=== PATIENT | male | born 1960 | race Caucasian/White ===

== ENCOUNTER 2021-07-29 13:10 | Inpatient (IN) ==
[2021-07-29] MEDS ORDERED: methylPREDNISolone 125 MG/2 ML VIAL IVP ONE (13:22)
[2021-07-29] MEDS ORDERED: Ipratropium/Albuterol Neb 3 ML IH ONE (13:22)
[2021-07-29] MEDS ORDERED: 0.9 % Sodium Chloride 1,000 ML IVC ONE (13:22)
[2021-07-29 13:56] LABS: Basophils # 0.1 K/mcL (0.0-0.2); Basophils % 0.7 %; Eosinophils % 0.2 %; Hematocrit 40.6 % (37.5-50.1); Hemoglobin 12.5 g/dL (12.9-16.9); Immature Granulocytes % 4.9 % (0-4); Lymphocytes # 0.9 K/mcL (0.6-4.6); Lymphocytes % 8.2 %; Mean Corpuscular HGB Conc 30.8 g/dL (31.6-35.5); Mean Corpuscular Hemoglobin 26.1 pg (28.0-33.3); Mean Corpuscular Volume 84.8 fL (83.0-100.0); Mean Platelet Volume 10.3 fL (9.4-12.4); Monocytes % 8.8 %; Neutrophils # 8.9 K/mcL (1.6-8.9); Nucleated Red Blood Cells 0.2 /100 WBC (0); Platelet Count 272 K/mcL (140-400); Red Blood Count 4.79 M/mcL (4.19-5.50); Red Cell Distribution Width 16.3 % (11.5-14.5); Segmented Neutrophils % 77.2 %; White Blood Count 11.5 K/mcL (4.3-11.1)
[2021-07-29 14:14] LABS: BUN/Creatinine Ratio 22 (6-26); Blood Urea Nitrogen 19 mg/dL (6-20); Calcium 7.6 mg/dL (8.6-10.3); Carbon Dioxide 25 mEq/L (23-29); Chloride 102 mEq/L (98-107); Glucose 139 mg/dL (70-105); Osmolality,Calculated 289 (280-300); Potassium 4.2 mEq/L (3.5-5.1); Sodium 137 mEq/L (136-145); Troponin I 0.42 ng/mL (< 0.04); eGFR For African Americans > 60 (> 60); eGFR For Non-African Americans > 60 (> 60)
[2021-07-29] MEDS ORDERED: *HR* Heparin 5,000 UNIT/ML VIAL IVP ONE (14:16)
[2021-07-29] MEDS ORDERED: *HR* Heparin 5,000 UNIT/ML VIAL IVP PRN ×2 (14:16)
[2021-07-29 14:29] LABS: Influenza A PCR Negative (Negative); Influenza B PCR Negative (Negative); Resp. Syncytial Virus PCR Negative (Negative)
[2021-07-29] MEDS ORDERED: Heparin 25,000UNIT/250ML 1/2NS 25,000 UNIT/250 ML IV.SOLN IVC SCH (14:30)
[2021-07-29 14:32] LABS: SARS-CoV-2 by PCR (In House) Positive (Negative)
[2021-07-29] MEDS ORDERED: Azithromycin 500 MG in 0.9 % Sodium Chloride 250 ML IVPB ONE (14:32)
[2021-07-29] MEDS ORDERED: Naloxone 0.4 MG/ML INJ IVP PRN (16:50)
[2021-07-29] MEDS ORDERED: Ondansetron 4 MG/2 ML VIAL IVP PRN (16:50)
[2021-07-29] MEDS: Tiotropium 10 INH DOSE IH SCH (17:11)
[2021-07-29] MEDS ORDERED: Isovue-370 500 ML BOTTLE IVP ONE (17:51)
[2021-07-29] MEDS ORDERED: Perflutren Lipid Microsphere 1.3 ML in 0.9 % Sodium Chloride 8.7 ML IVP PRN (17:52)
[2021-07-29] MEDS: cefTRIAXone 1,000 MG in Water for inj. (sterile) 10 ML IVP SCH (20:00)
[2021-07-29] MEDS: *HR* Enoxaparin 150 MG/ML SYRINGE SQ SCH (20:00)
[2021-07-29 20:40] LABS: Alanine Aminotransferase 28 Units/L (7-52); Albumin 3.1 g/dL (3.5-5.7); Alkaline Phosphatase 89 Units/L (34-104); Aspartate Amino Transferase 41 Units/L (13-39); Bilirubin,Direct 0.2 mg/dL (0.0-0.2); Bilirubin,Indirect 0.3 mg/dL (0.0-1.0); Bilirubin,Total 0.5 mg/dL (0.3-1.0); C-Reactive Protein > 300 mg/L (Less than 10); Globulin 3.2 g/dL (2.4-3.5); Total Protein 6.3 g/dL (6.4-8.9)
[2021-07-30] MEDS: Melatonin 3 MG TABLET PO PRN ×2 (00:05→21:37)
[2021-07-30] MEDS: *HR* Enoxaparin 150 MG/ML SYRINGE SQ SCH ×2 (05:06→17:59)
[2021-07-30 06:10] LABS: Hematocrit 40.2 % (37.5-50.1); Hemoglobin 12.1 g/dL (12.9-16.9); Mean Corpuscular HGB Conc 30.1 g/dL (31.6-35.5); Mean Corpuscular Volume 86.3 fL (83.0-100.0); Mean Platelet Volume 10.4 fL (9.4-12.4); Nucleated Red Blood Cells 0.2 /100 WBC (0); Platelet Count 292 K/mcL (140-400); Red Blood Count 4.66 M/mcL (4.19-5.50); Red Cell Distribution Width 16.5 % (11.5-14.5); White Blood Count 9.7 K/mcL (4.3-11.1)
[2021-07-30 06:26] LABS: BUN/Creatinine Ratio 28 (6-26); Blood Urea Nitrogen 23 mg/dL (6-20); Calcium 7.5 mg/dL (8.6-10.3); Carbon Dioxide 23 mEq/L (23-29); Chloride 105 mEq/L (98-107); Glucose 202 mg/dL (70-105); Osmolality,Calculated 295 (280-300); Phosphorous 2.3 mg/dL (2.7-4.5); Sodium 138 mEq/L (136-145); eGFR For African Americans > 60 (> 60); eGFR For Non-African Americans > 60 (> 60)
[2021-07-30 06:29] LABS: Anisocytosis 1+ (Not Present); Lymphocytes # 0.4 K/mcL (0.6-4.6); Monocytes # 0.6 K/mcL (0.0-1.3); Neutrophils # 8.7 K/mcL (1.6-8.9); Platelet Estimate Normal (Normal)
[2021-07-30 06:30] LABS: Troponin I 0.39 ng/mL (< 0.04)
[2021-07-30] MEDS ORDERED: Ketorolac 30 MG/ML VIAL IVP ONE (09:01)
[2021-07-30] MEDS: cefTRIAXone 1,000 MG in Water for inj. (sterile) 10 ML IVP SCH (09:22)
[2021-07-30] MEDS: GuaiFENesin Liq 200 MG/10 ML UDC PO PRN ×2 (09:22→18:13)
[2021-07-30] MEDS: Azithromycin 500 MG in 0.9 % Sodium Chloride 250 ML IVPB SCH (09:23)
[2021-07-30] MEDS: Tiotropium 10 INH DOSE IH SCH (11:38)
[2021-07-30] MEDS: Nicotine 21 MG PATCH.TD24 TD SCH (13:14)
[2021-07-30] MEDS ORDERED: *HR* LORazepam 2 MG/ML VIAL IVP PRN (18:02)
[2021-07-30] MEDS: Dexmedetomidine HCl 400 MCG/100 ML MLS IVC SCH (22:54)
[2021-07-30] MEDS ORDERED: Fluticasone Propionate Nasal 50 MCG/SPRAY BOTTLE NS PRN (23:26)
[2021-07-31] MEDS: Dexmedetomidine HCl 400 MCG/100 ML MLS IVC SCH ×6 (02:05→22:20)
[2021-07-31] MEDS ORDERED: OLANZapine 10 MG VIAL IM ONE (02:40)
[2021-07-31 02:58] LABS: ABG Base Excess 0 mEq/L (-2 to 3); ABG HCO3 25 mEq/L (21-27); ABG Oxygen Saturation 93 % (95-98); ABG PCO2 43 mmHg (35-45); ABG PH 7.38 pH Units (7.32-7.45); ABG PO2 68 mmHg (85-104); ABG TCO2 27 mEq/L (20-26)
[2021-07-31] MEDS ORDERED: Water for inj. (sterile) 10 ML ONE (03:03)
[2021-07-31] MEDS ORDERED: Haloperidol Lactate 5 MG/ML VIAL IVP ONE (03:10)
[2021-07-31] MEDS: *HR* Enoxaparin 150 MG/ML SYRINGE SQ SCH (06:10)
[2021-07-31 07:16] LABS: Basophils # 0.1 K/mcL (0.0-0.2); Basophils % 0.7 %; Hematocrit 39.6 % (37.5-50.1); Hemoglobin 12.2 g/dL (12.9-16.9); Immature Granulocytes % 4.6 % (0-4); Lymphocytes # 0.9 K/mcL (0.6-4.6); Lymphocytes % 8.2 %; Mean Corpuscular HGB Conc 30.8 g/dL (31.6-35.5); Mean Corpuscular Hemoglobin 26.9 pg (28.0-33.3); Mean Corpuscular Volume 87.2 fL (83.0-100.0); Mean Platelet Volume 10.6 fL (9.4-12.4); Monocytes # 1.2 K/mcL (0.0-1.3); Monocytes % 10.6 %; Neutrophils # 8.6 K/mcL (1.6-8.9); Nucleated Red Blood Cells 0.2 /100 WBC (0); Platelet Count 388 K/mcL (140-400); Red Blood Count 4.54 M/mcL (4.19-5.50); Red Cell Distribution Width 16.8 % (11.5-14.5); Segmented Neutrophils % 75.9 %; White Blood Count 11.3 K/mcL (4.3-11.1)
[2021-07-31 07:35] LABS: BUN/Creatinine Ratio 37 (6-26); Blood Urea Nitrogen 28 mg/dL (6-20); Calcium 7.8 mg/dL (8.6-10.3); Carbon Dioxide 24 mEq/L (23-29); Chloride 108 mEq/L (98-107); Glucose 217 mg/dL (70-105); Magnesium 2.2 mg/dL (1.6-2.6); Osmolality,Calculated 306 (280-300); Potassium 4.3 mEq/L (3.5-5.1); Sodium 142 mEq/L (136-145); eGFR For African Americans > 60 (> 60); eGFR For Non-African Americans > 60 (> 60)
[2021-07-31] MEDS: Tiotropium 10 INH DOSE IH SCH (07:43)
[2021-07-31] MEDS: Azithromycin 500 MG in 0.9 % Sodium Chloride 250 ML IVPB SCH (07:56)
[2021-07-31] MEDS: cefTRIAXone 1,000 MG in Water for inj. (sterile) 10 ML IVP SCH (07:56)
[2021-07-31] MEDS: Nicotine 21 MG PATCH.TD24 TD SCH (07:57)
[2021-07-31] MEDS ORDERED: *HR* LORazepam 2 MG/ML VIAL IVP ONE (10:47)
[2021-07-31] MEDS ORDERED: *HR* LORazepam 2 MG/ML VIAL IVP PRN (10:48)
[2021-07-31] MEDS: Aspirin Enteric Coated 81 MG Tablet PO SCH (11:05)
[2021-07-31] MEDS: Nystatin POWDER 30 GM BOTTLE TP SCH ×3 (11:10→20:58)
[2021-07-31] MEDS: *HR* Enoxaparin 40 MG/0.4 ML SYRINGE SQ SCH (16:53)
[2021-07-31] MEDS: *HR* LORazepam 2 MG/ML VIAL IVP PRN (18:31)
[2021-07-31] MEDS ORDERED: Morphine Sulfate 2 MG/ML SYRINGE IVP ONE (20:44)
[2021-07-31 21:04] LABS: ABG Base Excess 0 mEq/L (-2 to 3); ABG HCO3 26 mEq/L (21-27); ABG Oxygen Saturation 90 % (95-98); ABG PCO2 50 mmHg (35-45); ABG PH 7.33 pH Units (7.32-7.45); ABG PO2 65 mmHg (85-104); ABG TCO2 28 mEq/L (20-26); Blood Gas Modality AVAPS
[2021-08-01] MEDS: Dexmedetomidine HCl 400 MCG/100 ML MLS IVC SCH ×7 (01:57→22:10)
[2021-08-01 03:51] LABS: Basophils # 0.1 K/mcL (0.0-0.2); Basophils % 0.8 %; Hematocrit 41.3 % (37.5-50.1); Hemoglobin 12.2 g/dL (12.9-16.9); Immature Granulocytes % 4.6 % (0-4); Lymphocytes % 6.1 %; Mean Corpuscular HGB Conc 29.5 g/dL (31.6-35.5); Mean Corpuscular Volume 88.1 fL (83.0-100.0); Monocytes # 1.5 K/mcL (0.0-1.3); Neutrophils # 12.7 K/mcL (1.6-8.9); Platelet Count 436 K/mcL (140-400); Red Blood Count 4.69 M/mcL (4.19-5.50); Red Cell Distribution Width 16.8 % (11.5-14.5); Segmented Neutrophils % 79.5 %
[2021-08-01 04:05] LABS: BUN/Creatinine Ratio 45 (6-26); Blood Urea Nitrogen 28 mg/dL (6-20); Calcium 7.9 mg/dL (8.6-10.3); Carbon Dioxide 25 mEq/L (23-29); Chloride 106 mEq/L (98-107); Glucose 209 mg/dL (70-105); Magnesium 2.2 mg/dL (1.6-2.6); Osmolality,Calculated 302 (280-300); Phosphorous 2.5 mg/dL (2.7-4.5); Potassium 4.5 mEq/L (3.5-5.1); Sodium 140 mEq/L (136-145); eGFR For African Americans > 60 (> 60); eGFR For Non-African Americans > 60 (> 60)
[2021-08-01] MEDS: *HR* Enoxaparin 40 MG/0.4 ML SYRINGE SQ SCH ×2 (05:08→18:55)
[2021-08-01] MEDS ORDERED: Morphine Sulfate 2 MG/ML SYRINGE IVP PRN (07:51)
[2021-08-01] MEDS: Tiotropium 10 INH DOSE IH SCH (08:18)
[2021-08-01 08:45] LABS: ABG Base Excess 2 mEq/L (-2 to 3); ABG HCO3 26 mEq/L (21-27); ABG Oxygen Saturation 92 % (95-98); ABG PCO2 39 mmHg (35-45); ABG PH 7.43 pH Units (7.32-7.45); ABG PO2 63 mmHg (85-104); ABG TCO2 27 mEq/L (20-26); Blood Gas Pressure Support 40 cm H2O
[2021-08-01] MEDS: Aspirin Enteric Coated 81 MG Tablet PO SCH (10:21)
[2021-08-01] MEDS: Nicotine 21 MG PATCH.TD24 TD SCH (10:48)
[2021-08-01] MEDS: cefTRIAXone 1,000 MG in Water for inj. (sterile) 10 ML IVP SCH (10:48)
[2021-08-01] MEDS: Azithromycin 500 MG in 0.9 % Sodium Chloride 250 ML IVPB SCH (10:50)
[2021-08-01] MEDS: Nystatin POWDER 30 GM BOTTLE TP SCH ×3 (10:51→20:20)
[2021-08-01] MEDS: *HR* LORazepam 2 MG/ML VIAL IVP PRN (14:07)
[2021-08-01 17:19] LABS: C-Reactive Protein 60 mg/L (Less than 10)
[2021-08-02] MEDS: *HR* LORazepam 2 MG/ML VIAL IVP PRN (00:56)
[2021-08-02] MEDS: Dexmedetomidine HCl 400 MCG/100 ML MLS IVC SCH ×4 (01:07→12:26)
[2021-08-02 05:08] LABS: Hematocrit 40.1 % (37.5-50.1); Hemoglobin 12.4 g/dL (12.9-16.9); Mean Corpuscular HGB Conc 30.9 g/dL (31.6-35.5); Mean Corpuscular Hemoglobin 26.8 pg (28.0-33.3); Mean Corpuscular Volume 86.6 fL (83.0-100.0); Mean Platelet Volume 10.7 fL (9.4-12.4); Nucleated Red Blood Cells 0.1 /100 WBC (0); Platelet Count 430 K/mcL (140-400); Red Blood Count 4.63 M/mcL (4.19-5.50); White Blood Count 17.5 K/mcL (4.3-11.1)
[2021-08-02] MEDS: *HR* Enoxaparin 40 MG/0.4 ML SYRINGE SQ SCH ×2 (05:08→17:39)
[2021-08-02 05:28] LABS: BUN/Creatinine Ratio 38 (6-26); Blood Urea Nitrogen 23 mg/dL (6-20); Calcium 7.7 mg/dL (8.6-10.3); Carbon Dioxide 26 mEq/L (23-29); Chloride 105 mEq/L (98-107); Glucose 197 mg/dL (70-105); Magnesium 2.1 mg/dL (1.6-2.6); Osmolality,Calculated 295 (280-300); Phosphorous 2.6 mg/dL (2.7-4.5); Potassium 4.2 mEq/L (3.5-5.1); Sodium 138 mEq/L (136-145); eGFR For African Americans > 60 (> 60); eGFR For Non-African Americans > 60 (> 60)
[2021-08-02 06:00] LABS: Anisocytosis 1+ (Not Present); Lymphocytes # 0.4 K/mcL (0.6-4.6); Monocytes # 1.4 K/mcL (0.0-1.3); Neutrophils # 15.1 K/mcL (1.6-8.9); Platelet Estimate Normal (Normal)
[2021-08-02] MEDS: cefTRIAXone 1,000 MG in Water for inj. (sterile) 10 ML IVP SCH (07:53)
[2021-08-02] MEDS: Azithromycin 500 MG in 0.9 % Sodium Chloride 250 ML IVPB SCH (07:55)
[2021-08-02] MEDS: Aspirin Enteric Coated 81 MG Tablet PO SCH (08:12)
[2021-08-02] MEDS: Tiotropium 10 INH DOSE IH SCH (08:45)
[2021-08-02 08:54] LABS: ABG Base Excess 4 mEq/L (-2 to 3); ABG HCO3 27 mEq/L (21-27); ABG Oxygen Saturation 89 % (95-98); ABG PCO2 37 mmHg (35-45); ABG PH 7.47 pH Units (7.32-7.45); ABG PO2 53 mmHg (85-104); ABG TCO2 29 mEq/L (20-26); Blood Gas Modality avaps; Blood Gas Pressure Support 16 cm H2O; Blood Gas VT 500 cc
[2021-08-02] MEDS ORDERED: Acetaminophen IV 1,000 MG/100 ML BAG IVPB PRN (09:39)
[2021-08-02] MEDS ORDERED: Acetaminophen 650 MG RECTAL SUPP RC PRN (09:39)
[2021-08-02] MEDS: Nicotine 21 MG PATCH.TD24 TD SCH (10:20)
[2021-08-02] MEDS: Nystatin POWDER 30 GM BOTTLE TP SCH ×3 (12:26→20:02)
[2021-08-02] MEDS ORDERED: Insulin LISPRO 300 UNITS/3 ML VIAL SUBQ SCH (13:30)
[2021-08-02] MEDS ORDERED: *HR* Propofol 200 MG/20 ML VIAL IVP ONE (14:04)
[2021-08-02] MEDS ORDERED: *HR* Midazolam HCl 5 MG/5 ML VIAL IVP ONE (14:04)
[2021-08-02] MEDS ORDERED: *HR* Rocuronium Bromide 50 MG/5 ML VIAL IVP ONE (14:04)
[2021-08-02] MEDS ORDERED: Lidocaine -MPF 2% 5 ML VIAL SQ ONE (14:04)
[2021-08-02] MEDS: FentaNYL (PF) 1,000 MCG/100 ML IV.SOLN IVC SCH ×2 (15:00→19:15)
[2021-08-02] MEDS ORDERED: Artificial Tears SOLN 15 ML BOTTLE BOTH EYES PRN (15:10)
[2021-08-02] MEDS: Norepinephrine 4 MG/254 ML IV.SOLN IVC SCH ×2 (17:34→19:10)
[2021-08-02] MEDS: Artificial Tears SOLN 15 ML BOTTLE BOTH EYES SCH ×2 (17:38→19:39)
[2021-08-02] MEDS: Insulin LISPRO 300 UNITS/3 ML VIAL SUBQ SCH (17:39)
[2021-08-02] MEDS ORDERED: Isovue-370 500 ML BOTTLE IVP ONE ×2 (19:12→20:15)
[2021-08-02] MEDS: Chlorhexidine Rinse 15 ML MOUTHWASH MM SCH (19:37)
[2021-08-03] MEDS ORDERED: MetroNIDAZOLE 500 MG/100 ML 500 MG/100 ML BAG IVPB SCH
[2021-08-03] MEDS: MetroNIDAZOLE 500 MG/100 ML 500 MG/100 ML BAG IVPB SCH ×2 (00:07→07:52)
[2021-08-03] MEDS: Artificial Tears SOLN 15 ML BOTTLE BOTH EYES SCH ×6 (00:07→20:11)
[2021-08-03] MEDS: FentaNYL (PF) 1,000 MCG/100 ML IV.SOLN IVC SCH ×5 (00:25→20:29)
[2021-08-03] MEDS: Insulin LISPRO 300 UNITS/3 ML VIAL SUBQ SCH ×5 (00:28→20:19)
[2021-08-03 03:57] LABS: ABG Base Excess 2 mEq/L (-2 to 3); ABG HCO3 30 mEq/L (21-27); ABG Oxygen Saturation 100 % (95-98); ABG PCO2 60 mmHg (35-45); ABG PO2 213 mmHg (85-104); ABG TCO2 32 mEq/L (20-26); Blood Gas VT 440 cc
[2021-08-03 04:15] LABS: Alanine Aminotransferase 40 Units/L (7-52); Albumin 2.8 g/dL (3.5-5.7); Albumin/Globulin Ratio 0.9 (1.1-2.2); Alkaline Phosphatase 156 Units/L (34-104); Aspartate Amino Transferase 34 Units/L (13-39); BUN/Creatinine Ratio 34 (6-26); Bilirubin,Total 0.6 mg/dL (0.3-1.0); Blood Urea Nitrogen 27 mg/dL (6-20); C-Reactive Protein 111 mg/L (Less than 10); Calcium 7.5 mg/dL (8.6-10.3); Carbon Dioxide 28 mEq/L (23-29); Chloride 105 mEq/L (98-107); Globulin 3.1 g/dL (2.4-3.5); Glucose 189 mg/dL (70-105); Magnesium 2.3 mg/dL (1.6-2.6); Osmolality,Calculated 304 (280-300); Phosphorous 4.1 mg/dL (2.7-4.5); Potassium 4.2 mEq/L (3.5-5.1); Sodium 142 mEq/L (136-145); Total Protein 5.9 g/dL (6.4-8.9); eGFR For African Americans > 60 (> 60); eGFR For Non-African Americans > 60 (> 60)
[2021-08-03 04:24] LABS: Mean Platelet Volume 10.7 fL (9.4-12.4)
[2021-08-03 04:25] LABS: Hematocrit 41.4 % (37.5-50.1); Hemoglobin 12.3 g/dL (12.9-16.9); Mean Corpuscular HGB Conc 29.7 g/dL (31.6-35.5); Mean Corpuscular Hemoglobin 26.6 pg (28.0-33.3); Mean Corpuscular Volume 89.4 fL (83.0-100.0); Nucleated Red Blood Cells 0.3 /100 WBC (0); Platelet Count 466 K/mcL (140-400); Red Blood Count 4.63 M/mcL (4.19-5.50); Red Cell Distribution Width 16.2 % (11.5-14.5)
[2021-08-03 04:47] LABS: White Blood Count 30.2 K/mcL (4.3-11.1)
[2021-08-03 05:26] LABS: Lymphocytes # 3.3 K/mcL (0.6-4.6); Neutrophils # 23.9 K/mcL (1.6-8.9); Reactive Lymphocytes Present (Not Present)
[2021-08-03] MEDS: *HR* Enoxaparin 40 MG/0.4 ML SYRINGE SQ SCH ×2 (05:51→16:48)
[2021-08-03] MEDS ORDERED: Cefepime HCl 2,000 MG in 0.9 % Sodium Chloride Mini Bag 100 ML IVPB SCH (06:00)
[2021-08-03] MEDS: Norepinephrine 4 MG/254 ML IV.SOLN IVC SCH ×2 (06:29→18:58)
[2021-08-03] MEDS: Cisatracurium 200 MG in 0.9 % Sodium Chloride 180 ML IVC SCH ×2 (07:24→14:37)
[2021-08-03] MEDS: Chlorhexidine Rinse 15 ML MOUTHWASH MM SCH ×2 (07:24→19:54)
[2021-08-03] MEDS: Tiotropium 10 INH DOSE IH SCH (07:51)
[2021-08-03] MEDS: Nicotine 21 MG PATCH.TD24 TD SCH (07:52)
[2021-08-03] MEDS: Pantoprazole 40 MG VIAL IVP SCH (08:01)
[2021-08-03] MEDS: Aspirin 81 MG TAB.CHEW GTUBE SCH (08:01)
[2021-08-03] MEDS: Nystatin POWDER 30 GM BOTTLE TP SCH ×3 (08:34→22:07)
[2021-08-03] MEDS: Vancomycin 2,000 MG/520 ML IV.SOLN IVPB SCH (11:44)
[2021-08-03] MEDS: Piperacillin/Tazobactam 3.375 GM in 0.9 % Sodium Chloride Mini Bag 100 ML IVPB SCH (15:38)
[2021-08-03 16:44] LABS: Appearance of Body Fluid Cloudy (Clear); Volume of Body Fluid 20 mL
[2021-08-04] MEDS: Vancomycin 2,000 MG/520 ML IV.SOLN IVPB SCH ×3 (00:30→23:49)
[2021-08-04] MEDS: Insulin LISPRO 300 UNITS/3 ML VIAL SUBQ SCH ×6 (00:34→20:47)
[2021-08-04] MEDS: Artificial Tears SOLN 15 ML BOTTLE BOTH EYES SCH ×6 (00:34→20:47)
[2021-08-04] MEDS: Piperacillin/Tazobactam 3.375 GM in 0.9 % Sodium Chloride Mini Bag 100 ML IVPB SCH ×4 (00:38→23:48)
[2021-08-04] MEDS: FentaNYL (PF) 1,000 MCG/100 ML IV.SOLN IVC SCH ×5 (02:15→22:38)
[2021-08-04 04:16] LABS: ABG Base Excess 3 mEq/L (-2 to 3); ABG HCO3 31 mEq/L (21-27); ABG Oxygen Saturation 89 % (95-98); ABG PCO2 58 mmHg (35-45); ABG PH 7.33 pH Units (7.32-7.45); ABG PO2 63 mmHg (85-104); ABG TCO2 32 mEq/L (20-26); Blood Gas VT 440 cc
[2021-08-04 04:45] LABS: Nucleated Red Blood Cells 0.1 /100 WBC (0); Red Cell Distribution Width 16.3 % (11.5-14.5)
[2021-08-04 04:47] LABS: Hematocrit 37.3 % (37.5-50.1); Hemoglobin 11.2 g/dL (12.9-16.9); Mean Corpuscular Hemoglobin 27.2 pg (28.0-33.3); Mean Corpuscular Volume 90.5 fL (83.0-100.0); Mean Platelet Volume 10.7 fL (9.4-12.4); Platelet Count 375 K/mcL (140-400); Red Blood Count 4.12 M/mcL (4.19-5.50); White Blood Count 23.4 K/mcL (4.3-11.1)
[2021-08-04 05:05] LABS: Lymphocytes # 0.5 K/mcL (0.6-4.6); Monocytes # 1.9 K/mcL (0.0-1.3); Neutrophils # 19.7 K/mcL (1.6-8.9); Platelet Estimate Normal (Normal)
[2021-08-04 05:07] LABS: Alanine Aminotransferase 33 Units/L (7-52); Albumin 2.6 g/dL (3.5-5.7); Albumin/Globulin Ratio 0.9 (1.1-2.2); Alkaline Phosphatase 114 Units/L (34-104); Aspartate Amino Transferase 27 Units/L (13-39); BUN/Creatinine Ratio 41 (6-26); Bilirubin,Total 0.7 mg/dL (0.3-1.0); Blood Urea Nitrogen 30 mg/dL (6-20); Calcium 7.6 mg/dL (8.6-10.3); Carbon Dioxide 28 mEq/L (23-29); Chloride 107 mEq/L (98-107); Globulin 2.9 g/dL (2.4-3.5); Glucose 171 mg/dL (70-105); Magnesium 2.3 mg/dL (1.6-2.6); Osmolality,Calculated 304 (280-300); Phosphorous 2.4 mg/dL (2.7-4.5); Potassium 4.1 mEq/L (3.5-5.1); Sodium 142 mEq/L (136-145); Total Protein 5.5 g/dL (6.4-8.9); eGFR For African Americans > 60 (> 60); eGFR For Non-African Americans > 60 (> 60)
[2021-08-04] MEDS: *HR* Enoxaparin 40 MG/0.4 ML SYRINGE SQ SCH ×2 (06:04→17:37)
[2021-08-04] MEDS: Tiotropium 10 INH DOSE IH SCH (07:42)
[2021-08-04] MEDS: Chlorhexidine Rinse 15 ML MOUTHWASH MM SCH ×2 (08:00→20:45)
[2021-08-04] MEDS: Aspirin 81 MG TAB.CHEW GTUBE SCH (08:02)
[2021-08-04] MEDS: Pantoprazole 40 MG VIAL IVP SCH (08:02)
[2021-08-04] MEDS: Nicotine 21 MG PATCH.TD24 TD SCH (08:02)
[2021-08-04] MEDS: Nystatin POWDER 30 GM BOTTLE TP SCH ×3 (08:03→20:48)
[2021-08-04] MEDS: Norepinephrine 4 MG/254 ML IV.SOLN IVC SCH ×3 (08:40→20:45)
[2021-08-04 09:56] LABS: C-Reactive Protein 86 mg/L (Less than 10)
[2021-08-04] MEDS: Cisatracurium 200 MG in 0.9 % Sodium Chloride 180 ML IVC SCH (15:29)
[2021-08-04] MEDS: *HR* LORazepam 2 MG/ML VIAL IVP PRN ×2 (17:38→22:14)
[2021-08-05] MEDS: Artificial Tears SOLN 15 ML BOTTLE BOTH EYES SCH ×7 (00:47→23:46)
[2021-08-05] MEDS: Insulin LISPRO 300 UNITS/3 ML VIAL SUBQ SCH ×6 (00:47→20:56)
[2021-08-05] MEDS: FentaNYL (PF) 1,000 MCG/100 ML IV.SOLN IVC SCH ×5 (03:25→23:44)
[2021-08-05 04:37] LABS: Mean Platelet Volume 11.1 fL (9.4-12.4); Nucleated Red Blood Cells 0.2 /100 WBC (0)
[2021-08-05 04:39] LABS: Hematocrit 36.3 % (37.5-50.1); Hemoglobin 10.6 g/dL (12.9-16.9); Mean Corpuscular HGB Conc 29.2 g/dL (31.6-35.5); Mean Corpuscular Hemoglobin 26.6 pg (28.0-33.3); Mean Corpuscular Volume 91.2 fL (83.0-100.0); Platelet Count 344 K/mcL (140-400); Red Blood Count 3.98 M/mcL (4.19-5.50); Red Cell Distribution Width 16.1 % (11.5-14.5); White Blood Count 19.7 K/mcL (4.3-11.1)
[2021-08-05 04:51] LABS: Alanine Aminotransferase 26 Units/L (7-52); Albumin 2.5 g/dL (3.5-5.7); Albumin/Globulin Ratio 0.8 (1.1-2.2); Alkaline Phosphatase 89 Units/L (34-104); Aspartate Amino Transferase 21 Units/L (13-39); BUN/Creatinine Ratio 42 (6-26); BUN/Creatinine Ratio 43 (6-26); Bilirubin,Total 0.6 mg/dL (0.3-1.0); Blood Urea Nitrogen 26 mg/dL (6-20); C-Reactive Protein 66 mg/L (Less than 10); Calcium 7.7 mg/dL (8.6-10.3); Carbon Dioxide 31 mEq/L (23-29); Chloride 108 mEq/L (98-107); Glucose 152 mg/dL (70-105); Glucose 155 mg/dL (70-105); Magnesium 1.9 mg/dL (1.6-2.6); Osmolality,Calculated 306 (280-300); Phosphorous 1.9 mg/dL (2.7-4.5); Sodium 144 mEq/L (136-145); Total Protein 5.5 g/dL (6.4-8.9); eGFR For African Americans > 60 (> 60); eGFR For Non-African Americans > 60 (> 60)
[2021-08-05 05:05] LABS: ABG Base Excess 5 mEq/L (-2 to 3); ABG HCO3 32 mEq/L (21-27); ABG Oxygen Saturation 89 % (95-98); ABG PCO2 54 mmHg (35-45); ABG PH 7.38 pH Units (7.32-7.45); ABG PO2 59 mmHg (85-104); ABG TCO2 34 mEq/L (20-26); Blood Gas VT 440 cc
[2021-08-05] MEDS: *HR* Enoxaparin 40 MG/0.4 ML SYRINGE SQ SCH ×2 (05:06→17:30)
[2021-08-05 05:40] LABS: Lymphocytes # 3.2 K/mcL (0.6-4.6); Neutrophils # 14.6 K/mcL (1.6-8.9); Platelet Estimate Normal (Normal); Reactive Lymphocytes Present (Not Present)
[2021-08-05] MEDS: Tiotropium 10 INH DOSE IH SCH (07:49)
[2021-08-05] MEDS: Piperacillin/Tazobactam 3.375 GM in 0.9 % Sodium Chloride Mini Bag 100 ML IVPB SCH ×3 (09:09→23:45)
[2021-08-05] MEDS: Nicotine 21 MG PATCH.TD24 TD SCH (09:10)
[2021-08-05] MEDS: Chlorhexidine Rinse 15 ML MOUTHWASH MM SCH ×2 (09:11→20:42)
[2021-08-05] MEDS: Pantoprazole 40 MG VIAL IVP SCH (09:11)
[2021-08-05] MEDS: Nystatin POWDER 30 GM BOTTLE TP SCH ×3 (09:11→20:42)
[2021-08-05] MEDS: Aspirin 81 MG TAB.CHEW GTUBE SCH (09:11)
[2021-08-05] MEDS: Dexamethasone Sodium Phos/PF 10 MG/ML VIAL IVP SCH (09:11)
[2021-08-05] MEDS: 0.9 % Sodium Chloride 1,000 ML IVC SCH ×2 (11:31→18:25)
[2021-08-05] MEDS: Vancomycin 2,000 MG/520 ML IV.SOLN IVPB SCH ×2 (12:05→23:44)
[2021-08-05] MEDS: Cisatracurium 200 MG in 0.9 % Sodium Chloride 180 ML IVC SCH (16:40)
[2021-08-06] MEDS: Insulin LISPRO 300 UNITS/3 ML VIAL SUBQ SCH ×6 (00:16→19:54)
[2021-08-06] MEDS: 0.9 % Sodium Chloride 1,000 ML IVC SCH (01:30)
[2021-08-06] MEDS: FentaNYL (PF) 1,000 MCG/100 ML IV.SOLN IVC SCH ×4 (04:44→20:59)
[2021-08-06 05:03] LABS: ABG Base Excess 7 mEq/L (-2 to 3); ABG HCO3 34 mEq/L (21-27); ABG Oxygen Saturation 88 % (95-98); ABG PCO2 63 mmHg (35-45); ABG PH 7.34 pH Units (7.32-7.45); ABG PO2 60 mmHg (85-104); ABG TCO2 36 mEq/L (20-26); Blood Gas VT 440 cc
[2021-08-06] MEDS: *HR* Enoxaparin 40 MG/0.4 ML SYRINGE SQ SCH ×2 (05:47→17:20)
[2021-08-06] MEDS: Artificial Tears SOLN 15 ML BOTTLE BOTH EYES SCH ×6 (05:48→23:27)
[2021-08-06 05:54] LABS: VBG Ionized Calcium 1.14 mmol/L (1.15-1.35)
[2021-08-06 06:01] LABS: Hematocrit 34.8 % (37.5-50.1); Hemoglobin 10.2 g/dL (12.9-16.9); Mean Corpuscular HGB Conc 29.3 g/dL (31.6-35.5); Mean Corpuscular Hemoglobin 26.8 pg (28.0-33.3); Mean Corpuscular Volume 91.3 fL (83.0-100.0); Mean Platelet Volume 11.4 fL (9.4-12.4); Platelet Count 320 K/mcL (140-400); Red Blood Count 3.81 M/mcL (4.19-5.50); Red Cell Distribution Width 16.2 % (11.5-14.5); White Blood Count 14.6 K/mcL (4.3-11.1)
[2021-08-06 06:16] LABS: Alanine Aminotransferase 31 Units/L (7-52); Albumin 2.4 g/dL (3.5-5.7); Albumin/Globulin Ratio 0.8 (1.1-2.2); Alkaline Phosphatase 84 Units/L (34-104); Aspartate Amino Transferase 29 Units/L (13-39); BUN/Creatinine Ratio 48 (6-26); Bilirubin,Total 0.6 mg/dL (0.3-1.0); Blood Urea Nitrogen 27 mg/dL (6-20); Calcium 7.7 mg/dL (8.6-10.3); Carbon Dioxide 32 mEq/L (23-29); Chloride 108 mEq/L (98-107); Globulin 2.9 g/dL (2.4-3.5); Glucose 152 mg/dL (70-105); Magnesium 1.8 mg/dL (1.6-2.6); Osmolality,Calculated 310 (280-300); Phosphorous 2.6 mg/dL (2.7-4.5); Potassium 4.1 mEq/L (3.5-5.1); Sodium 146 mEq/L (136-145); Total Protein 5.3 g/dL (6.4-8.9); eGFR For African Americans > 60 (> 60); eGFR For Non-African Americans > 60 (> 60)
[2021-08-06 06:33] LABS: Ferritin 546 ng/mL (20-250)
[2021-08-06] MEDS: Nicotine 21 MG PATCH.TD24 TD SCH (08:10)
[2021-08-06] MEDS: Chlorhexidine Rinse 15 ML MOUTHWASH MM SCH ×2 (08:10→20:19)
[2021-08-06] MEDS: Piperacillin/Tazobactam 3.375 GM in 0.9 % Sodium Chloride Mini Bag 100 ML IVPB SCH ×2 (08:10→16:08)
[2021-08-06] MEDS: Dexamethasone Sodium Phos/PF 10 MG/ML VIAL IVP SCH (08:11)
[2021-08-06] MEDS: Aspirin 81 MG TAB.CHEW GTUBE SCH (08:11)
[2021-08-06] MEDS: Pantoprazole 40 MG VIAL IVP SCH (08:11)
[2021-08-06] MEDS: Nystatin POWDER 30 GM BOTTLE TP SCH ×3 (08:12→20:17)
[2021-08-06] MEDS: Tiotropium 10 INH DOSE IH SCH (08:24)
[2021-08-06] MEDS ORDERED: Magnesium Sulfate 1 GM/102 ML PIGGYBACK IVPB ONE (09:34)
[2021-08-06 10:39] LABS: C-Reactive Protein 96 mg/L (Less than 10)
[2021-08-06] MEDS: Vancomycin 2,000 MG/520 ML IV.SOLN IVPB SCH ×2 (11:07→22:30)
[2021-08-07] MEDS: Piperacillin/Tazobactam 3.375 GM in 0.9 % Sodium Chloride Mini Bag 100 ML IVPB SCH ×3 (00:30→17:28)
[2021-08-07] MEDS: Insulin LISPRO 300 UNITS/3 ML VIAL SUBQ SCH ×7 (00:31→23:22)
[2021-08-07] MEDS: FentaNYL (PF) 1,000 MCG/100 ML IV.SOLN IVC SCH ×2 (02:12→10:22)
[2021-08-07] MEDS: Artificial Tears SOLN 15 ML BOTTLE BOTH EYES SCH ×6 (03:28→23:22)
[2021-08-07 03:30] LABS: VBG Ionized Calcium 1.13 mmol/L (1.15-1.35)
[2021-08-07 03:31] LABS: Mean Corpuscular HGB Conc 29.4 g/dL (31.6-35.5); Mean Corpuscular Hemoglobin 26.7 pg (28.0-33.3); Mean Corpuscular Volume 90.9 fL (83.0-100.0); Mean Platelet Volume 11.4 fL (9.4-12.4); Platelet Count 321 K/mcL (140-400); Red Blood Count 3.74 M/mcL (4.19-5.50); Red Cell Distribution Width 15.9 % (11.5-14.5); White Blood Count 13.5 K/mcL (4.3-11.1)
[2021-08-07 03:53] LABS: Alanine Aminotransferase 31 Units/L (7-52); Albumin 2.5 g/dL (3.5-5.7); Albumin/Globulin Ratio 0.8 (1.1-2.2); Alkaline Phosphatase 78 Units/L (34-104); Aspartate Amino Transferase 27 Units/L (13-39); BUN/Creatinine Ratio 54 (6-26); Bilirubin,Total 0.6 mg/dL (0.3-1.0); Blood Urea Nitrogen 28 mg/dL (6-20); C-Reactive Protein 88 mg/L (Less than 10); Calcium 7.9 mg/dL (8.6-10.3); Carbon Dioxide 34 mEq/L (23-29); Chloride 106 mEq/L (98-107); Glucose 139 mg/dL (70-105); Osmolality,Calculated 310 (280-300); Potassium 4.1 mEq/L (3.5-5.1); Sodium 146 mEq/L (136-145); Total Protein 5.5 g/dL (6.4-8.9); eGFR For African Americans > 60 (> 60); eGFR For Non-African Americans > 60 (> 60)
[2021-08-07 03:55] LABS: Magnesium 1.7 mg/dL (1.6-2.6); Phosphorous 2.6 mg/dL (2.7-4.5)
[2021-08-07 05:41] LABS: ABG Base Excess 8 mEq/L (-2 to 3); ABG HCO3 35 mEq/L (21-27); ABG Oxygen Saturation 90 % (95-98); ABG PCO2 59 mmHg (35-45); ABG PH 7.38 pH Units (7.32-7.45); ABG PO2 62 mmHg (85-104); ABG TCO2 37 mEq/L (20-26); Blood Gas Modality ASSIST CONTROL; Blood Gas VT 440 cc
[2021-08-07] MEDS: *HR* Enoxaparin 40 MG/0.4 ML SYRINGE SQ SCH (06:00)
[2021-08-07] MEDS: Tiotropium 10 INH DOSE IH SCH (08:20)
[2021-08-07] MEDS: Norepinephrine 4 MG/254 ML IV.SOLN IVC SCH ×2 (09:22→09:23)
[2021-08-07] MEDS: Chlorhexidine Rinse 15 ML MOUTHWASH MM SCH ×2 (10:22→20:06)
[2021-08-07] MEDS: Dexamethasone Sodium Phos/PF 10 MG/ML VIAL IVP SCH (10:23)
[2021-08-07] MEDS: Pantoprazole 40 MG VIAL IVP SCH (10:23)
[2021-08-07] MEDS: Aspirin 81 MG TAB.CHEW GTUBE SCH (10:23)
[2021-08-07] MEDS: Nicotine 21 MG PATCH.TD24 TD SCH (10:26)
[2021-08-07] MEDS: Nystatin POWDER 30 GM BOTTLE TP SCH ×3 (11:02→21:15)
[2021-08-07] MEDS: FentaNYL (PF) 2,500 MCG/50 ML IV.SOLN IVC SCH (13:17)
[2021-08-07] MEDS: Dexmedetomidine HCl 400 MCG/100 ML MLS IVC SCH ×3 (13:54→21:58)
[2021-08-07] MEDS: *HR* Enoxaparin 80 MG/0.8 ML SYRINGE SQ SCH (17:28)
[2021-08-08] MEDS: Piperacillin/Tazobactam 3.375 GM in 0.9 % Sodium Chloride Mini Bag 100 ML IVPB SCH ×3 (00:24→15:43)
[2021-08-08] MEDS: Dexmedetomidine HCl 400 MCG/100 ML MLS IVC SCH ×7 (01:29→21:10)
[2021-08-08] MEDS: Artificial Tears SOLN 15 ML BOTTLE BOTH EYES SCH ×5 (03:38→20:38)
[2021-08-08] MEDS: Insulin LISPRO 300 UNITS/3 ML VIAL SUBQ SCH ×5 (03:38→20:38)
[2021-08-08 03:50] LABS: ABG Base Excess 10 mEq/L (-2 to 3); ABG HCO3 37 mEq/L (21-27); ABG Oxygen Saturation 98 % (95-98); ABG PCO2 65 mmHg (35-45); ABG PH 7.37 pH Units (7.32-7.45); ABG PO2 117 mmHg (85-104); ABG TCO2 39 mEq/L (20-26); Blood Gas Modality ASSIST CONTROL; Blood Gas VT 410 cc
[2021-08-08 04:09] LABS: Hematocrit 35.6 % (37.5-50.1); Hemoglobin 10.3 g/dL (12.9-16.9); Mean Corpuscular HGB Conc 28.9 g/dL (31.6-35.5); Mean Corpuscular Hemoglobin 26.5 pg (28.0-33.3); Mean Corpuscular Volume 91.5 fL (83.0-100.0); Mean Platelet Volume 11.7 fL (9.4-12.4); Platelet Count 315 K/mcL (140-400); Red Blood Count 3.89 M/mcL (4.19-5.50); Red Cell Distribution Width 15.9 % (11.5-14.5); White Blood Count 12.3 K/mcL (4.3-11.1)
[2021-08-08 04:19] LABS: Alanine Aminotransferase 34 Units/L (7-52); Albumin 2.7 g/dL (3.5-5.7); Albumin/Globulin Ratio 0.8 (1.1-2.2); Alkaline Phosphatase 78 Units/L (34-104); Aspartate Amino Transferase 24 Units/L (13-39); BUN/Creatinine Ratio 50 (6-26); Bilirubin,Total 0.5 mg/dL (0.3-1.0); Blood Urea Nitrogen 29 mg/dL (6-20); C-Reactive Protein 79 mg/L (Less than 10); Calcium 8.3 mg/dL (8.6-10.3); Carbon Dioxide 36 mEq/L (23-29); Chloride 102 mEq/L (98-107); Globulin 3.2 g/dL (2.4-3.5); Glucose 197 mg/dL (70-105); Osmolality,Calculated 309 (280-300); Potassium 4.3 mEq/L (3.5-5.1); Sodium 144 mEq/L (136-145); Total Protein 5.9 g/dL (6.4-8.9); eGFR For African Americans > 60 (> 60); eGFR For Non-African Americans > 60 (> 60)
[2021-08-08] MEDS: *HR* Enoxaparin 80 MG/0.8 ML SYRINGE SQ SCH ×2 (05:13→19:18)
[2021-08-08] MEDS: Tiotropium 10 INH DOSE IH SCH (07:39)
[2021-08-08] MEDS ORDERED: Furosemide 20 MG/2 ML VIAL IVP ONE (07:50)
[2021-08-08] MEDS: FentaNYL (PF) 2,500 MCG/50 ML IV.SOLN IVC SCH (08:13)
[2021-08-08] MEDS: Nicotine 21 MG PATCH.TD24 TD SCH (08:35)
[2021-08-08] MEDS: Dexamethasone Sodium Phos/PF 10 MG/ML VIAL IVP SCH (08:35)
[2021-08-08] MEDS: Chlorhexidine Rinse 15 ML MOUTHWASH MM SCH ×2 (08:35→20:39)
[2021-08-08] MEDS: Pantoprazole 40 MG VIAL IVP SCH (08:35)
[2021-08-08] MEDS: Nystatin POWDER 30 GM BOTTLE TP SCH ×3 (08:36→22:00)
[2021-08-08] MEDS: Aspirin 81 MG TAB.CHEW GTUBE SCH (08:36)
[2021-08-08 14:21] LABS: Blood Gas VT 410 cc; VBG HCO3 39 mEq/L (21-27); VBG PCO2 64 mmHg (41-51); VBG PO2 81 mmHg (25-50)
[2021-08-09] MEDS: Artificial Tears SOLN 15 ML BOTTLE BOTH EYES SCH ×7 (00:13→23:48)
[2021-08-09] MEDS: Insulin LISPRO 300 UNITS/3 ML VIAL SUBQ SCH ×6 (00:14→20:20)
[2021-08-09] MEDS: Piperacillin/Tazobactam 3.375 GM in 0.9 % Sodium Chloride Mini Bag 100 ML IVPB SCH ×3 (00:14→15:55)
[2021-08-09] MEDS: Dexmedetomidine HCl 400 MCG/100 ML MLS IVC SCH ×7 (01:03→21:23)
[2021-08-09 05:00] LABS: Hematocrit 36.3 % (37.5-50.1); Hemoglobin 10.6 g/dL (12.9-16.9); Mean Corpuscular HGB Conc 29.2 g/dL (31.6-35.5); Mean Corpuscular Hemoglobin 26.4 pg (28.0-33.3); Mean Corpuscular Volume 90.5 fL (83.0-100.0); Mean Platelet Volume 11.9 fL (9.4-12.4); Platelet Count 336 K/mcL (140-400); Red Blood Count 4.01 M/mcL (4.19-5.50); Red Cell Distribution Width 15.6 % (11.5-14.5); White Blood Count 14.6 K/mcL (4.3-11.1)
[2021-08-09 05:18] LABS: Alanine Aminotransferase 39 Units/L (7-52); Albumin 2.9 g/dL (3.5-5.7); Albumin/Globulin Ratio 0.9 (1.1-2.2); Alkaline Phosphatase 79 Units/L (34-104); Aspartate Amino Transferase 34 Units/L (13-39); BUN/Creatinine Ratio 60 (6-26); Bilirubin,Total 0.7 mg/dL (0.3-1.0); Blood Urea Nitrogen 34 mg/dL (6-20); C-Reactive Protein 45 mg/L (Less than 10); Calcium 8.4 mg/dL (8.6-10.3); Carbon Dioxide 37 mEq/L (23-29); Chloride 95 mEq/L (98-107); Globulin 3.3 g/dL (2.4-3.5); Glucose 190 mg/dL (70-105); Osmolality,Calculated 303 (280-300); Potassium 4.3 mEq/L (3.5-5.1); Sodium 140 mEq/L (136-145); Total Protein 6.2 g/dL (6.4-8.9); eGFR For African Americans > 60 (> 60); eGFR For Non-African Americans > 60 (> 60)
[2021-08-09 05:40] LABS: ABG Base Excess 8 mEq/L (-2 to 3); ABG HCO3 35 mEq/L (21-27); ABG Oxygen Saturation 96 % (95-98); ABG PCO2 57 mmHg (35-45); ABG PO2 82 mmHg (85-104); ABG TCO2 37 mEq/L (20-26); Blood Gas Modality ASSIST CONTROL; Blood Gas VT 410 cc
[2021-08-09] MEDS: *HR* Enoxaparin 80 MG/0.8 ML SYRINGE SQ SCH (05:53)
[2021-08-09] MEDS: FentaNYL (PF) 2,500 MCG/50 ML IV.SOLN IVC SCH (06:07)
[2021-08-09] MEDS: Tiotropium 10 INH DOSE IH SCH (08:09)
[2021-08-09] MEDS ORDERED: dexAMETHasone 4 MG TABLET PO SCH (09:00)
[2021-08-09] MEDS: Nicotine 21 MG PATCH.TD24 TD SCH (09:01)
[2021-08-09] MEDS: Chlorhexidine Rinse 15 ML MOUTHWASH MM SCH ×2 (09:02→19:57)
[2021-08-09] MEDS: Aspirin 81 MG TAB.CHEW GTUBE SCH (09:02)
[2021-08-09] MEDS: Pantoprazole 40 MG VIAL IVP SCH (09:10)
[2021-08-09] MEDS: Furosemide 20 MG/2 ML VIAL IVP SCH ×2 (09:11→19:57)
[2021-08-09] MEDS: Nystatin POWDER 30 GM BOTTLE TP SCH ×3 (09:52→19:58)
[2021-08-09] MEDS: Norepinephrine 4 MG/254 ML IV.SOLN IVC SCH ×4 (18:10→21:09)
[2021-08-09] MEDS: *HR* Enoxaparin 150 MG/ML SYRINGE SQ SCH (18:20)
[2021-08-10] MEDS: Insulin LISPRO 300 UNITS/3 ML VIAL SUBQ SCH ×6 (00:05→19:48)
[2021-08-10] MEDS: Dexmedetomidine HCl 400 MCG/100 ML MLS IVC SCH ×7 (00:23→21:13)
[2021-08-10 02:49] LABS: Bacteria,Urine Few per hpf (None-Few); Bilirubin,Urine Negative (Negative); Blood,Urine Large (Negative); Clarity,Urine Clear (Clear); Color,Urine Yellow (Yellow); Glucose,Urine (UA) Normal (Normal); Ketones,Urine Negative (Negative); Leukocyte Esterase,Urine Negative (Negative); Mucus,Urine Few per lpf (None-Few); Nitrite,Urine Negative (Negative); Protein,Urine 50 mg/dL (Neg-Trace); RBC,Urine 30-50 per hpf (0-3); Specific Gravity,Urine 1.029 (1.010-1.025); Squamous Epithelial Cell,Urine Few per hpf (None-Few)
[2021-08-10 04:01] LABS: Hemoglobin 10.8 g/dL (12.9-16.9); Mean Corpuscular HGB Conc 29.2 g/dL (31.6-35.5); Mean Corpuscular Volume 89.2 fL (83.0-100.0); Nucleated Red Blood Cells 0.1 /100 WBC (0); Platelet Count 294 K/mcL (140-400); Red Blood Count 4.15 M/mcL (4.19-5.50); Red Cell Distribution Width 15.9 % (11.5-14.5); White Blood Count 15.3 K/mcL (4.3-11.1)
[2021-08-10 04:23] LABS: BUN/Creatinine Ratio 76 (6-26); Blood Urea Nitrogen 48 mg/dL (6-20); Calcium 8.5 mg/dL (8.6-10.3); Carbon Dioxide 39 mEq/L (23-29); Chloride 92 mEq/L (98-107); Glucose 202 mg/dL (70-105); Magnesium 1.7 mg/dL (1.6-2.6); Osmolality,Calculated 302 (280-300); Phosphorous 4.3 mg/dL (2.7-4.5); Potassium 3.8 mEq/L (3.5-5.1); Sodium 137 mEq/L (136-145); eGFR For African Americans > 60 (> 60); eGFR For Non-African Americans > 60 (> 60)
[2021-08-10] MEDS: Artificial Tears SOLN 15 ML BOTTLE BOTH EYES SCH ×6 (04:29→23:29)
[2021-08-10 04:32] LABS: Hypochromasia Present (Not Present); Lymphocytes # 2.8 K/mcL (0.6-4.6); Monocytes # 2.8 K/mcL (0.0-1.3); Neutrophils # 9.2 K/mcL (1.6-8.9); Platelet Estimate Normal (Normal); Polychromasia 1+ (Not Present); Stomatocytes 1+ (Not Present)
[2021-08-10 05:03] LABS: ABG Base Excess 11 mEq/L (-2 to 3); ABG HCO3 37 mEq/L (21-27); ABG Oxygen Saturation 93 % (95-98); ABG PCO2 56 mmHg (35-45); ABG PH 7.43 pH Units (7.32-7.45); ABG PO2 69 mmHg (85-104); ABG TCO2 39 mEq/L (20-26); Blood Gas Modality ASSIST CONTROL; Blood Gas VT 410 cc
[2021-08-10] MEDS: *HR* Enoxaparin 150 MG/ML SYRINGE SQ SCH ×2 (05:17→18:06)
[2021-08-10] MEDS: Tiotropium 10 INH DOSE IH SCH (07:45)
[2021-08-10] MEDS: Pantoprazole 40 MG VIAL IVP SCH (08:34)
[2021-08-10] MEDS: Chlorhexidine Rinse 15 ML MOUTHWASH MM SCH ×2 (08:34→19:47)
[2021-08-10] MEDS: Furosemide 20 MG/2 ML VIAL IVP SCH ×2 (08:34→19:48)
[2021-08-10] MEDS: Nicotine 21 MG PATCH.TD24 TD SCH (08:35)
[2021-08-10] MEDS: Aspirin 81 MG TAB.CHEW GTUBE SCH (08:35)
[2021-08-10] MEDS: Micafungin 100 MG in 0.9 % Sodium Chloride Mini Bag 100 ML IVPB SCH (08:35)
[2021-08-10] MEDS: Nystatin POWDER 30 GM BOTTLE TP SCH ×3 (08:36→19:50)
[2021-08-10] MEDS: FentaNYL (PF) 2,500 MCG/50 ML IV.SOLN IVC SCH ×2 (10:50→21:11)
[2021-08-10] MEDS ORDERED: LOK IV SCH (12:15)
[2021-08-10] MEDS ORDERED: SODIUM CHLORIDE IV SCH (12:15)
[2021-08-10] MEDS: SODIUM CHLORIDE IV SCH ×2 (12:26→19:29)
[2021-08-10] MEDS: LOK IV SCH ×2 (12:26→19:29)
[2021-08-10] MEDS: Piperacillin/Tazobactam 3.375 GM in 0.9 % Sodium Chloride Mini Bag 100 ML IVPB SCH ×2 (15:46→23:27)
[2021-08-10] MEDS: Norepinephrine 4 MG/254 ML IV.SOLN IVC SCH (19:49)
[2021-08-11] MEDS: Insulin LISPRO 300 UNITS/3 ML VIAL SUBQ SCH ×7 (00:09→23:43)
[2021-08-11] MEDS: Norepinephrine 4 MG/254 ML IV.SOLN IVC SCH ×2 (00:09→22:58)
[2021-08-11] MEDS: Dexmedetomidine HCl 400 MCG/100 ML MLS IVC SCH ×7 (00:14→21:07)
[2021-08-11] MEDS: LOK IV SCH ×2 (01:38→06:09)
[2021-08-11] MEDS: SODIUM CHLORIDE IV SCH ×2 (01:38→06:09)
[2021-08-11] MEDS: Artificial Tears SOLN 15 ML BOTTLE BOTH EYES SCH ×6 (03:56→23:24)
[2021-08-11 04:11] LABS: BUN/Creatinine Ratio 67 (6-26); Blood Urea Nitrogen 45 mg/dL (6-20); Calcium 8.4 mg/dL (8.6-10.3); Carbon Dioxide 40 mEq/L (23-29); Chloride 100 mEq/L (98-107); Glucose 230 mg/dL (70-105); Magnesium 1.9 mg/dL (1.6-2.6); Osmolality,Calculated 319 (280-300); Phosphorous 2.5 mg/dL (2.7-4.5); Potassium 3.3 mEq/L (3.5-5.1); Sodium 145 mEq/L (136-145); eGFR For African Americans > 60 (> 60); eGFR For Non-African Americans > 60 (> 60)
[2021-08-11 04:29] LABS: Hemoglobin 10.4 g/dL (12.9-16.9); Mean Corpuscular HGB Conc 29.7 g/dL (31.6-35.5); Mean Corpuscular Volume 90.9 fL (83.0-100.0); Mean Platelet Volume 12.4 fL (9.4-12.4); Platelet Count 257 K/mcL (140-400); Red Blood Count 3.85 M/mcL (4.19-5.50); Red Cell Distribution Width 15.9 % (11.5-14.5); White Blood Count 14.5 K/mcL (4.3-11.1)
[2021-08-11 04:44] LABS: ABG Base Excess 12 mEq/L (-2 to 3); ABG HCO3 39 mEq/L (21-27); ABG Oxygen Saturation 91 % (95-98); ABG PCO2 59 mmHg (35-45); ABG PH 7.43 pH Units (7.32-7.45); ABG PO2 61 mmHg (85-104); ABG TCO2 40 mEq/L (20-26); Blood Gas VT 410 cc
[2021-08-11] MEDS: *HR* Enoxaparin 150 MG/ML SYRINGE SQ SCH ×2 (06:09→17:54)
[2021-08-11] MEDS: Piperacillin/Tazobactam 3.375 GM in 0.9 % Sodium Chloride Mini Bag 100 ML IVPB SCH ×3 (06:10→23:35)
[2021-08-11] MEDS: Tiotropium 10 INH DOSE IH SCH (07:42)
[2021-08-11] MEDS: Chlorhexidine Rinse 15 ML MOUTHWASH MM SCH ×2 (08:14→21:17)
[2021-08-11] MEDS: Micafungin 100 MG in 0.9 % Sodium Chloride Mini Bag 100 ML IVPB SCH (08:14)
[2021-08-11] MEDS: Pantoprazole 40 MG VIAL IVP SCH (08:16)
[2021-08-11] MEDS: Furosemide 20 MG/2 ML VIAL IVP SCH ×2 (08:16→21:18)
[2021-08-11] MEDS: Nicotine 21 MG PATCH.TD24 TD SCH (08:17)
[2021-08-11] MEDS: Aspirin 81 MG TAB.CHEW GTUBE SCH (08:34)
[2021-08-11] MEDS: Nystatin POWDER 30 GM BOTTLE TP SCH ×3 (08:35→21:17)
[2021-08-11] MEDS ORDERED: Potassium Chloride Elixir 20 MEQ/15 ML UDC GTUBE ONE (10:22)
[2021-08-11] MEDS: FentaNYL (PF) 2,500 MCG/50 ML IV.SOLN IVC SCH (14:13)
[2021-08-11 14:31] LABS: ABG Base Excess 12 mEq/L (-2 to 3); ABG HCO3 40 mEq/L (21-27); ABG Oxygen Saturation 95 % (95-98); ABG PCO2 63 mmHg (35-45); ABG PH 7.41 pH Units (7.32-7.45); ABG PO2 80 mmHg (85-104); ABG TCO2 42 mEq/L (20-26); Blood Gas VT 410 cc
[2021-08-11] MEDS: Mannitol 20% 100 GM/500 ML IV.SOLN IVC SCH ×2 (15:37→23:20)
[2021-08-11 22:11] LABS: Alanine Aminotransferase 49 Units/L (7-52); Albumin/Globulin Ratio 0.8 (1.1-2.2); Alkaline Phosphatase 76 Units/L (34-104); Aspartate Amino Transferase 44 Units/L (13-39); BUN/Creatinine Ratio 52 (6-26); Bilirubin,Total 0.6 mg/dL (0.3-1.0); Blood Urea Nitrogen 34 mg/dL (6-20); Calcium 8.7 mg/dL (8.6-10.3); Carbon Dioxide 38 mEq/L (23-29); Chloride 101 mEq/L (98-107); Globulin 3.6 g/dL (2.4-3.5); Glucose 222 mg/dL (70-105); Osmolality,Calculated 316 (280-300); Potassium 3.6 mEq/L (3.5-5.1); Sodium 146 mEq/L (136-145); Total Protein 6.6 g/dL (6.4-8.9); eGFR For African Americans > 60 (> 60); eGFR For Non-African Americans > 60 (> 60)
[2021-08-12] MEDS: Dexmedetomidine HCl 400 MCG/100 ML MLS IVC SCH ×3 (00:44→13:29)
[2021-08-12] MEDS: FentaNYL (PF) 2,500 MCG/50 ML IV.SOLN IVC SCH (03:45)
[2021-08-12] MEDS: Artificial Tears SOLN 15 ML BOTTLE BOTH EYES SCH ×5 (03:47→19:38)
[2021-08-12] MEDS: Mannitol 20% 100 GM/500 ML IV.SOLN IVC SCH ×4 (04:42→21:07)
[2021-08-12] MEDS: Insulin LISPRO 300 UNITS/3 ML VIAL SUBQ SCH ×5 (04:43→20:54)
[2021-08-12 05:02] LABS: Nucleated Red Blood Cells 0.3 /100 WBC (0)
[2021-08-12 05:04] LABS: Hemoglobin 10.5 g/dL (12.9-16.9); Mean Corpuscular HGB Conc 28.4 g/dL (31.6-35.5); Mean Corpuscular Hemoglobin 26.9 pg (28.0-33.3); Mean Corpuscular Volume 94.6 fL (83.0-100.0); Mean Platelet Volume 12.2 fL (9.4-12.4); Platelet Count 239 K/mcL (140-400); Red Blood Count 3.91 M/mcL (4.19-5.50); Red Cell Distribution Width 16.7 % (11.5-14.5); White Blood Count 14.5 K/mcL (4.3-11.1)
[2021-08-12 05:05] LABS: ABG Base Excess 12 mEq/L (-2 to 3); ABG HCO3 39 mEq/L (21-27); ABG Oxygen Saturation 94 % (95-98); ABG PCO2 66 mmHg (35-45); ABG PH 7.38 pH Units (7.32-7.45); ABG PO2 76 mmHg (85-104); ABG TCO2 41 mEq/L (20-26); Blood Gas Modality ASSIST CONTROL; Blood Gas VT 410 cc
[2021-08-12 05:09] LABS: VBG Ionized Calcium 1.11 mmol/L (1.15-1.35)
[2021-08-12 05:27] LABS: BUN/Creatinine Ratio 45 (6-26); Blood Urea Nitrogen 34 mg/dL (6-20); Calcium 8.8 mg/dL (8.6-10.3); Carbon Dioxide 40 mEq/L (23-29); Chloride 100 mEq/L (98-107); Glucose 230 mg/dL (70-105); Magnesium 2.1 mg/dL (1.6-2.6); Osmolality,Calculated 315 (280-300); Potassium 3.7 mEq/L (3.5-5.1); Sodium 145 mEq/L (136-145); eGFR For African Americans > 60 (> 60); eGFR For Non-African Americans > 60 (> 60)
[2021-08-12] MEDS: Tiotropium 10 INH DOSE IH SCH (07:54)
[2021-08-12] MEDS: Pantoprazole 40 MG VIAL IVP SCH (08:04)
[2021-08-12] MEDS: Aspirin 81 MG TAB.CHEW GTUBE SCH (08:05)
[2021-08-12] MEDS: Furosemide 20 MG/2 ML VIAL IVP SCH ×2 (08:05→19:38)
[2021-08-12] MEDS: Piperacillin/Tazobactam 3.375 GM in 0.9 % Sodium Chloride Mini Bag 100 ML IVPB SCH ×2 (08:05→16:15)
[2021-08-12] MEDS: Chlorhexidine Rinse 15 ML MOUTHWASH MM SCH ×2 (08:06→19:38)
[2021-08-12] MEDS: Micafungin 100 MG in 0.9 % Sodium Chloride Mini Bag 100 ML IVPB SCH (08:06)
[2021-08-12] MEDS: Nicotine 21 MG PATCH.TD24 TD SCH (08:08)
[2021-08-12] MEDS: *HR* Enoxaparin 150 MG/ML SYRINGE SQ SCH (08:45)
[2021-08-12] MEDS: Nystatin POWDER 30 GM BOTTLE TP SCH ×3 (08:46→19:38)
[2021-08-12 13:27] LABS: Monocytes # 2.6 K/mcL (0.0-1.3); Neutrophils # 9.1 K/mcL (1.6-8.9); Platelet Estimate Normal (Normal)
[2021-08-12 13:28] LABS: Anisocytosis 1+ (Not Present)
[2021-08-12] MEDS: Norepinephrine 4 MG/254 ML IV.SOLN IVC SCH (16:25)
[2021-08-13] MEDS: Insulin LISPRO 300 UNITS/3 ML VIAL SUBQ SCH ×7 (00:37→23:26)
[2021-08-13] MEDS: Artificial Tears SOLN 15 ML BOTTLE BOTH EYES SCH ×7 (00:37→23:26)
[2021-08-13] MEDS: Piperacillin/Tazobactam 3.375 GM in 0.9 % Sodium Chloride Mini Bag 100 ML IVPB SCH ×4 (00:39→22:16)
[2021-08-13] MEDS: Dexmedetomidine HCl 400 MCG/100 ML MLS IVC SCH ×7 (01:16→23:26)
[2021-08-13 04:57] LABS: ABG Base Excess 12 mEq/L (-2 to 3); ABG HCO3 39 mEq/L (21-27); ABG Oxygen Saturation 87 % (95-98); ABG PCO2 62 mmHg (35-45); ABG PH 7.41 pH Units (7.32-7.45); ABG PO2 55 mmHg (85-104); ABG TCO2 41 mEq/L (20-26); Blood Gas Modality ASSIST CONTROL; Blood Gas VT 410 cc
[2021-08-13] MEDS: Mannitol 20% 100 GM/500 ML IV.SOLN IVC SCH ×4 (04:57→22:16)
[2021-08-13] MEDS: FentaNYL (PF) 2,500 MCG/50 ML IV.SOLN IVC SCH ×2 (04:59→16:33)
[2021-08-13 05:04] LABS: Alanine Aminotransferase 54 Units/L (7-52); Albumin 3.3 g/dL (3.5-5.7); Albumin/Globulin Ratio 0.9 (1.1-2.2); Alkaline Phosphatase 85 Units/L (34-104); Aspartate Amino Transferase 50 Units/L (13-39); BUN/Creatinine Ratio 32 (6-26); Bilirubin,Total 0.6 mg/dL (0.3-1.0); Blood Urea Nitrogen 28 mg/dL (6-20); Calcium 9.3 mg/dL (8.6-10.3); Carbon Dioxide 38 mEq/L (23-29); Chloride 105 mEq/L (98-107); Globulin 3.8 g/dL (2.4-3.5); Glucose 227 mg/dL (70-105); Osmolality,Calculated 327 (280-300); Potassium 3.3 mEq/L (3.5-5.1); Sodium 152 mEq/L (136-145); Total Protein 7.1 g/dL (6.4-8.9); eGFR For African Americans > 60 (> 60); eGFR For Non-African Americans > 60 (> 60)
[2021-08-13] MEDS: Norepinephrine 4 MG/254 ML IV.SOLN IVC SCH (06:19)
[2021-08-13 06:56] LABS: Nucleated Red Blood Cells 0.2 /100 WBC (0)
[2021-08-13 06:58] LABS: Hematocrit 40.4 % (37.5-50.1); Hemoglobin 11.1 g/dL (12.9-16.9); Immature Platelets 10.8 % (1.1-6.1); Mean Corpuscular HGB Conc 27.5 g/dL (31.6-35.5); Mean Corpuscular Hemoglobin 26.4 pg (28.0-33.3); Mean Platelet Volume 12.8 fL (9.4-12.4); Platelet Count 253 K/mcL (140-400); Red Blood Count 4.21 M/mcL (4.19-5.50); Red Cell Distribution Width 17.2 % (11.5-14.5); White Blood Count 15.8 K/mcL (4.3-11.1)
[2021-08-13 08:12] LABS: Eosinophils # 0.2 K/mcL (0.0-0.6); Lymphocytes # 2.2 K/mcL (0.6-4.6); Monocytes # 1.9 K/mcL (0.0-1.3); Neutrophils # 10.7 K/mcL (1.6-8.9); Platelet Estimate Normal (Normal); Polychromasia 1+ (Not Present)
[2021-08-13 08:13] LABS: Anisocytosis 1+ (Not Present)
[2021-08-13] MEDS: Tiotropium 10 INH DOSE IH SCH (08:27)
[2021-08-13] MEDS: Chlorhexidine Rinse 15 ML MOUTHWASH MM SCH ×2 (08:34→19:57)
[2021-08-13] MEDS: Nicotine 21 MG PATCH.TD24 TD SCH (08:34)
[2021-08-13] MEDS: Micafungin 100 MG in 0.9 % Sodium Chloride Mini Bag 100 ML IVPB SCH (08:37)
[2021-08-13] MEDS: Furosemide 20 MG/2 ML VIAL IVP SCH ×2 (08:37→19:58)
[2021-08-13] MEDS: Pantoprazole 40 MG VIAL IVP SCH (08:38)
[2021-08-13] MEDS: Nystatin POWDER 30 GM BOTTLE TP SCH ×3 (08:38→19:57)
[2021-08-14] MEDS: Dexmedetomidine HCl 400 MCG/100 ML MLS IVC SCH ×6 (02:10→21:22)
[2021-08-14] MEDS: FentaNYL (PF) 2,500 MCG/50 ML IV.SOLN IVC SCH ×2 (02:11→18:14)
[2021-08-14] MEDS: Artificial Tears SOLN 15 ML BOTTLE BOTH EYES SCH ×6 (03:43→23:33)
[2021-08-14] MEDS: Insulin LISPRO 300 UNITS/3 ML VIAL SUBQ SCH ×6 (03:44→23:34)
[2021-08-14] MEDS: Mannitol 20% 100 GM/500 ML IV.SOLN IVC SCH ×2 (03:44→09:10)
[2021-08-14 03:47] LABS: Basophils # 0.1 K/mcL (0.0-0.2); Basophils % 0.8 %; Eosinophils % 1.7 %; Hematocrit 37.7 % (37.5-50.1); Hemoglobin 10.4 g/dL (12.9-16.9); Immature Granulocytes % 4.4 % (0-4); Lymphocytes # 2.2 K/mcL (0.6-4.6); Lymphocytes % 15.2 %; Mean Corpuscular HGB Conc 27.6 g/dL (31.6-35.5); Mean Corpuscular Hemoglobin 27.2 pg (28.0-33.3); Mean Corpuscular Volume 98.4 fL (83.0-100.0); Mean Platelet Volume 12.8 fL (9.4-12.4); Monocytes # 1.9 K/mcL (0.0-1.3); Monocytes % 12.9 %; Neutrophils # 9.4 K/mcL (1.6-8.9); Nucleated Red Blood Cells 0.3 /100 WBC (0); Platelet Count 221 K/mcL (140-400); Red Blood Count 3.83 M/mcL (4.19-5.50); Red Cell Distribution Width 17.3 % (11.5-14.5); White Blood Count 14.5 K/mcL (4.3-11.1)
[2021-08-14 03:50] LABS: Eosinophils # 0.3 K/mcL (0.0-0.6)
[2021-08-14 04:03] LABS: BUN/Creatinine Ratio 38 (6-26); Blood Urea Nitrogen 48 mg/dL (6-20); Calcium 9.1 mg/dL (8.6-10.3); Carbon Dioxide 38 mEq/L (23-29); Chloride 108 mEq/L (98-107); Glucose 198 mg/dL (70-105); Osmolality,Calculated 342 (280-300); Potassium 3.2 mEq/L (3.5-5.1); Sodium 157 mEq/L (136-145); eGFR For African Americans > 60 (> 60); eGFR For Non-African Americans 58 (> 60)
[2021-08-14 04:05] LABS: Anisocytosis 1+ (Not Present); Hypochromasia Present (Not Present); Platelet Estimate Normal (Normal); Polychromasia 1+ (Not Present)
[2021-08-14 04:24] LABS: ABG Base Excess 9 mEq/L (-2 to 3); ABG HCO3 38 mEq/L (21-27); ABG Oxygen Saturation 88 % (95-98); ABG PCO2 68 mmHg (35-45); ABG PH 7.36 pH Units (7.32-7.45); ABG PO2 60 mmHg (85-104); ABG TCO2 40 mEq/L (20-26); Blood Gas VT 410 cc
[2021-08-14] MEDS: Norepinephrine 4 MG/254 ML IV.SOLN IVC SCH ×4 (05:06→11:41)
[2021-08-14] MEDS ORDERED: Potassium Chloride 40 MEQ/200 ML BAG IVPB PRN (05:43)
[2021-08-14] MEDS: Piperacillin/Tazobactam 3.375 GM in 0.9 % Sodium Chloride Mini Bag 100 ML IVPB SCH ×3 (06:04→23:33)
[2021-08-14] MEDS: Pantoprazole 40 MG VIAL IVP SCH (07:59)
[2021-08-14] MEDS: Furosemide 20 MG/2 ML VIAL IVP SCH ×2 (08:00→20:04)
[2021-08-14] MEDS: Micafungin 100 MG in 0.9 % Sodium Chloride Mini Bag 100 ML IVPB SCH (08:00)
[2021-08-14] MEDS: Nicotine 21 MG PATCH.TD24 TD SCH (08:00)
[2021-08-14] MEDS: Chlorhexidine Rinse 15 ML MOUTHWASH MM SCH ×2 (08:00→20:03)
[2021-08-14] MEDS: Nystatin POWDER 30 GM BOTTLE TP SCH ×3 (08:02→20:04)
[2021-08-14] MEDS: Tiotropium 10 INH DOSE IH SCH (08:08)
[2021-08-14] MEDS ORDERED: 0.9 % Sodium Chloride 1,000 ML ONE ×2 (18:54→19:02)
[2021-08-14 19:07] LABS: Hematocrit 38.3 % (37.5-50.1); Hemoglobin 10.1 g/dL (12.9-16.9); Mean Corpuscular HGB Conc 26.4 g/dL (31.6-35.5); Mean Corpuscular Hemoglobin 26.9 pg (28.0-33.3); Mean Corpuscular Volume 101.9 fL (83.0-100.0); Mean Platelet Volume 12.3 fL (9.4-12.4); Platelet Count 203 K/mcL (140-400); Red Blood Count 3.76 M/mcL (4.19-5.50); Red Cell Distribution Width 17.7 % (11.5-14.5); White Blood Count 14.3 K/mcL (4.3-11.1)
[2021-08-14 19:09] LABS: Bacteria,Urine Few per hpf (None-Few); Bilirubin,Urine Negative (Negative); Blood,Urine Large (Negative); Clarity,Urine Turbid (Clear); Color,Urine Light-Yellow (Yellow); Glucose,Urine (UA) Normal (Normal); Ketones,Urine Negative (Negative); Leukocyte Esterase,Urine Negative (Negative); Mucus,Urine Few per lpf (None-Few); Nitrite,Urine Negative (Negative); Protein,Urine Trace mg/dL (Neg-Trace); Specific Gravity,Urine > 1.030 (1.010-1.025); Squamous Epithelial Cell,Urine Moderate per hpf (None-Few); Urobilinogen,Urine Normal (Normal)
[2021-08-14 19:12] LABS: INR 1.4; Prothrombin Time 15.9 Seconds (9.4-12.1)
[2021-08-14 19:15] LABS: Activated Partial Thrombo Time 25.3 Seconds (26.0-36.0)
[2021-08-14 19:18] LABS: Calcium 9.1 mg/dL (8.6-10.3); Potassium 3.7 mEq/L (3.5-5.1)
[2021-08-14 19:19] LABS: Albumin 3.1 g/dL (3.5-5.7); Albumin/Globulin Ratio 0.8 (1.1-2.2); Bilirubin,Direct 0.2 mg/dL (0.0-0.2); Bilirubin,Indirect 0.3 mg/dL (0.0-1.0); Bilirubin,Total 0.5 mg/dL (0.3-1.0); Globulin 3.7 g/dL (2.4-3.5); Phosphorous 5.4 mg/dL (2.7-4.5); Total Protein 6.8 g/dL (6.4-8.9)
[2021-08-14 19:32] LABS: ABG Base Excess 9 mEq/L (-2 to 3); ABG HCO3 36 mEq/L (21-27); ABG Oxygen Saturation 90 % (95-98); ABG PCO2 61 mmHg (35-45); ABG PH 7.38 pH Units (7.32-7.45); ABG PO2 61 mmHg (85-104); ABG TCO2 38 mEq/L (20-26); Blood Gas Modality ASSIST CONTROL; Blood Gas VT 410 cc
[2021-08-14 23:29] LABS: ABG Base Excess 9 mEq/L (-2 to 3); ABG HCO3 35 mEq/L (21-27); ABG Oxygen Saturation 96 % (95-98); ABG PCO2 53 mmHg (35-45); ABG PH 7.43 pH Units (7.32-7.45); ABG PO2 85 mmHg (85-104); ABG TCO2 37 mEq/L (20-26); Blood Gas Modality ASSIST CONTROL; Blood Gas VT 410 cc
[2021-08-15 00:13] LABS: Calcium 9.1 mg/dL (8.6-10.3); Potassium 3.7 mEq/L (3.5-5.1)
[2021-08-15 00:26] LABS: Influenza A PCR Negative (Negative); Influenza B PCR Negative (Negative); Resp. Syncytial Virus PCR Negative (Negative); SARS-CoV-2 by PCR (In House) Negative (Negative)
[2021-08-15] MEDS: Dexmedetomidine HCl 400 MCG/100 ML MLS IVC SCH ×4 (00:54→12:06)
[2021-08-15] MEDS: FentaNYL (PF) 2,500 MCG/50 ML IV.SOLN IVC SCH ×2 (01:19→15:20)
[2021-08-15 03:27] LABS: ABG Base Excess 12 mEq/L (-2 to 3); ABG HCO3 36 mEq/L (21-27); ABG Oxygen Saturation 100 % (95-98); ABG PCO2 45 mmHg (35-45); ABG PH 7.52 pH Units (7.32-7.45); ABG PO2 157 mmHg (85-104); ABG TCO2 38 mEq/L (20-26); Blood Gas VT 440 cc
[2021-08-15 03:53] LABS: Lymphocytes % 17.6 %; Nucleated Red Blood Cells 0.3 /100 WBC (0)
[2021-08-15 03:55] LABS: Basophils # 0.1 K/mcL (0.0-0.2); Basophils % 0.8 %; Eosinophils % 1.7 %; Hematocrit 36.3 % (37.5-50.1); Hemoglobin 9.6 g/dL (12.9-16.9); Immature Granulocytes % 2.1 % (0-4); Lymphocytes # 2.6 K/mcL (0.6-4.6); Mean Corpuscular HGB Conc 26.4 g/dL (31.6-35.5); Mean Corpuscular Hemoglobin 26.2 pg (28.0-33.3); Mean Corpuscular Volume 99.2 fL (83.0-100.0); Mean Platelet Volume 12.8 fL (9.4-12.4); Monocytes # 1.2 K/mcL (0.0-1.3); Monocytes % 8.2 %; Neutrophils # 10.1 K/mcL (1.6-8.9); Platelet Count 195 K/mcL (140-400); Red Blood Count 3.66 M/mcL (4.19-5.50); Red Cell Distribution Width 17.6 % (11.5-14.5); Segmented Neutrophils % 69.6 %; White Blood Count 14.5 K/mcL (4.3-11.1)
[2021-08-15 04:01] LABS: Eosinophils # 0.3 K/mcL (0.0-0.6)
[2021-08-15 04:21] LABS: Albumin 3.1 g/dL (3.5-5.7); Albumin/Globulin Ratio 0.8 (1.1-2.2); Bilirubin,Direct 0.2 mg/dL (0.0-0.2); Bilirubin,Indirect 0.6 mg/dL (0.0-1.0); Bilirubin,Total 0.8 mg/dL (0.3-1.0); Globulin 3.7 g/dL (2.4-3.5); Magnesium 2.3 mg/dL (1.6-2.6); Phosphorous 4.9 mg/dL (2.7-4.5); Total Protein 6.8 g/dL (6.4-8.9)
[2021-08-15] MEDS: Artificial Tears SOLN 15 ML BOTTLE BOTH EYES SCH ×5 (04:22→22:08)
[2021-08-15] MEDS: Insulin LISPRO 300 UNITS/3 ML VIAL SUBQ SCH ×3 (04:22→15:05)
[2021-08-15 04:47] LABS: Hypochromasia Present (Not Present); Platelet Estimate Normal (Normal)
[2021-08-15 05:31] LABS: Calcium 9.1 mg/dL (8.6-10.3); Potassium 3.6 mEq/L (3.5-5.1)
[2021-08-15] MEDS: Piperacillin/Tazobactam 3.375 GM in 0.9 % Sodium Chloride Mini Bag 100 ML IVPB SCH (06:23)
[2021-08-15 07:02] LABS: INR 1.4; Prothrombin Time 15.4 Seconds (9.4-12.1)
[2021-08-15] MEDS: Tiotropium 10 INH DOSE IH SCH (07:36)
[2021-08-15 08:39] LABS: Calcium 9.2 mg/dL (8.6-10.3); Potassium 3.6 mEq/L (3.5-5.1)
[2021-08-15] MEDS: Norepinephrine 4 MG/254 ML IV.SOLN IVC SCH ×2 (09:25→15:11)
[2021-08-15] MEDS: Chlorhexidine Rinse 15 ML MOUTHWASH MM SCH ×2 (09:27→22:05)
[2021-08-15] MEDS: Nicotine 21 MG PATCH.TD24 TD SCH (09:28)
[2021-08-15] MEDS: Nystatin POWDER 30 GM BOTTLE TP SCH ×3 (09:29→23:22)
[2021-08-15] MEDS: Pantoprazole 40 MG VIAL IVP SCH (09:30)
[2021-08-15] MEDS ORDERED: *HR* FentaNYL (PF) 100 MCG/2 ML VIAL ONE (12:58)
[2021-08-15] MEDS: *HR* LORazepam 2 MG/ML VIAL IVP PRN ×4 (13:46→22:03)
[2021-08-15] MEDS: *HR* FentaNYL (PF) 100 MCG/2 ML VIAL IVP PRN ×3 (13:47→14:32)
[2021-08-15] MEDS: Morphine Sulfate 2 MG/ML SYRINGE IVP PRN ×3 (13:57→22:03)
[2021-08-15] MEDS ORDERED: Scopolamine Patch 1.5 MG PATCH.TD72 TD SCH (15:00)
[2021-08-16] MEDS: Artificial Tears SOLN 15 ML BOTTLE BOTH EYES SCH ×3 (00:54→10:33)
[2021-08-16] MEDS: *HR* LORazepam 2 MG/ML VIAL IVP PRN ×2 (00:59→05:39)
[2021-08-16] MEDS: Morphine Sulfate 2 MG/ML SYRINGE IVP PRN ×2 (01:00→05:39)
[2021-08-16] MEDS: FentaNYL (PF) 2,500 MCG/50 ML IV.SOLN IVC SCH (01:00)
[2021-08-16] MEDS: *HR* FentaNYL (PF) 100 MCG/2 ML VIAL IVP PRN ×2 (02:23→05:40)
[2021-08-16] MEDS: Chlorhexidine Rinse 15 ML MOUTHWASH MM SCH (07:30)
[2021-08-16] MEDS: Nicotine 21 MG PATCH.TD24 TD SCH (08:10)
[2021-08-16 08:23] VITALS: BP 71/40; PULSE 95; TEMP 104.1; O2SAT 48
[2021-08-16] MEDS: Nystatin POWDER 30 GM BOTTLE TP SCH (10:33)
== END 2021-08-16 08:06 | disposition expired | DRG 720 ==
LOC: EMEROOARM 13:10 → 2NENU 13:10 → SUATTDRO 19:38 → 2NNU 08-01 07:51 → ICNU 08-02 14:56 → 2ANU 08-15 17:25
PROVIDERS: ADMIT Internal Medicine; ATTEND Family Medicine

== ENCOUNTER 2021-08-15 12:59 | Inpatient (IN) | END 2021-08-15 17:40 | disposition EXP | DRG 951 | LOC: 2NENU 12:59 → ICNU 13:12 → 2ANU 17:25 | PROVIDERS: ADMIT Family Medicine; ATTEND Family Medicine ==